=== PATIENT | male | born 1975 | race Caucasian/White ===

== ENCOUNTER 2018-05-22 21:02 | Emergency (ER) | payer OTHER ==
[~2018-05-22] VITALS: Ht 188 cm; Wt 90.7 kg
[~2018-05-22 21:02] MED LIST: IBUPROFEN800 M1 PO; PERCOCET 5-3251 EACH ORAL; ROBAXIN-750750 MG PO
[2018-05-22 21:39] VITALS: BP 130/70
[2018-05-22 21:40] VITALS: BP 130/70
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
--- NOTE | 2018-05-23 09:36 | Diagnostic Imaging Report ---
Indication: Shoulder pain Technique: 3 views of the right shoulder Comparison: none Findings: There is an old healed fracture deformity of the right clavicle. No acute fractures. No dislocations. The joint spaces are preserved Impression: No acute process
== END 2018-05-22 22:20 | disposition home or self-care (01) ==
LOC: EMR 21:45
DX: S43.401A Unspecified sprain of right shoulder joint, initial encounter (principal); W22.09XA Striking against other stationary object, initial encounter; Y92.9 Unspecified place or not applicable; Y99.0 Civilian activity done for income or pay
CPT/HCPCS: 99283

== ENCOUNTER 2018-09-01 22:50 | Emergency (ER) | payer OTHER ==
[~2018-09-01] VITALS: Ht 190.5 cm; Wt 95.3 kg
[2018-09-01] MEDS ORDERED: CITALOPRAM HBR40 M1 ORAL (22:57)
[2018-09-01 22:59] VITALS: BP 137/98
[2018-09-01] MEDS ORDERED: Tetanus/Diptheria/Pertussis Vaccine 0.5ml Syr IM ONE (23:15)
[2018-09-01] MEDS ORDERED: Bacitracin Oint UD TOPIC ONE (23:15)
--- NOTE | 2018-09-01 23:23 | Emergency Room Report ---
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 Small breaks in the skin. Dog UTD on vaccinations. Pain rated 1/10. No significant bleeding. No numbness. Denies diabetes. Unknown last tetanus. Allergies: Coded Allergies: No Known Allergies (Unverified , 07/22/13) Patient History Past Medical History: see triage record, other - IBS Social History Narrative [employer] Reviewed Nursing Documentation: PMH: Agreed; PSxH: Agreed Nursing Documentation-PMH Hx Gastrointestinal Problems: Yes - pud, ulcer, gastritis, ibs Review of Systems Constitutional: Denies: fever Musculoskeletal: Reports: see HPI Skin: Reports: see HPI Neurological: Reports: see HPI Hematologic/Lymphatic: Reports: see HPI Physical Exam Vital Signs Date Time Temp Pulse Resp B/P (MAP) Pulse Ox O2 Delivery O2 Flow Rate FiO2 09/01/18 22:53 98.4 77 16 137/98 96 Room Air Sp02 EP Interpretation: reviewed, normal General Appearance: well appearing, no apparent distress Head: normocephalic, atraumatic Eyes: bilateral eye normal inspection, bilateral eye PERRL ENT: hearing grossly normal, normal voice, moist mucus membranes Neck: full range of motion, supple Respiratory: no respiratory distress, speaking full sentences Cardiovascular #1: regular rate, rhythm Cardiovascular #2: 2+ dorsalis pedis (L) - good cap fill Gastrointestinal: normal inspection Musculoskeletal: digits/nails normal, gait/station normal, normal range of motion Neurologic: alert, oriented x3, normal gait, grossly normal Psychiatric: mood/affect normal Skin: other - abrasion/PW L lower calf Medical Decision Making Diagnostic Impression: Primary Impression: Dog bite Qualified Codes: W54.0XXA - Bitten by dog, initial encounter ER Course Patient with dog bite to L lower leg. Tetanus indicated as well as local care. Based on assessment of injuries, no systemic antibiotics indicated. Patient declines pain medication. Patient stable for outpatient observation and treatment. Last Vital Signs Date Time Temp Pulse Resp B/P (MAP) Pulse Ox O2 Delivery O2 Flow Rate FiO2 09/01/18 23:43 98.6 87 16 125/79 100 Room Air Status: improved Disposition: HOME, SELF-CARE Condition: Improved Scripts Bacitracin (Bacitracin) 28.4 Gm Oint...g. 1 APPLIC TOPIC BID, #10 GM Prov: Speedy Sanchez MD 09/01/18 Speedy Sanchez MD Sep 01, 2018 23:23
[2018-09-01] MEDS ORDERED: BACITRACIN15 GM TOPIC (23:25)
[2018-09-01 23:43] VITALS: BP 125/79
== END 2018-09-01 23:40 | disposition home or self-care (01) ==
LOC: EMR 23:21
DX: S80.812A Abrasion, left lower leg, initial encounter (principal); W54.0XXA Bitten by dog, initial encounter; Y92.9 Unspecified place or not applicable; Z23 Encounter for immunization
CPT/HCPCS: 90471; 90715; 99282

== ENCOUNTER 2020-04-14 01:42 | Emergency (ER) | payer OTHER ==
[~2020-04-14] VITALS: Ht 190.5 cm; Wt 99.8 kg
[~2020-04-14 01:42] MED LIST changes: +BACITRACIN15 GM TOPIC; +CITALOPRAM HBR40 M1 ORAL
[2020-04-14 01:50] VITALS: BP 139/99
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
--- NOTE | 2020-04-14 02:40 | NUR ---
ED Nurse Note: Devonte bandaged applied to pt arm by RN.
[2020-04-14] MEDS ORDERED: Acetaminophen 500mg (ES) tab ORAL ONE ×2 (02:44→02:45)
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
[2020-04-14] MEDS ORDERED: ACETAMINOPHEN500 M3 ORAL (02:51)
[2020-04-14 02:55] VITALS: BP 130/95
--- NOTE | 2020-04-14 02:55 | NUR ---
ER DISCHARGE NOTE: Patient is cleared to be discharged per ERMD, pt is aox4, on room air, with stable vital signs. pt was given dc and prescription instructions, pt was able to verbalize understanding, pt id band removed. pt is able to ambulate with steady gait. pt took all belongings.
--- NOTE | 2020-04-14 14:33 | Diagnostic Imaging Report ---
Indication: Elbow pain status post injury Technique: XRAY Elbow Min 3v R Comparison: None Findings: Bone mineralization within normal limits. No definite/displaced acute fractures identified. Alignment is maintained, without evidence of dislocation. No elbow joint effusion or elevation of the fat pads. No radiopaque foreign body. Impression: No radiographically appreciable acute fracture. No elbow joint effusion.
== END 2020-04-14 02:55 | disposition home or self-care (01) ==
LOC: EMR 02:03
DX: S54.01XA Injury of ulnar nerve at forearm level, right arm, initial encounter (principal); X58.XXXA Exposure to other specified factors, initial encounter; Y93.72 Activity, wrestling; Z87.11 Personal history of peptic ulcer disease
CPT/HCPCS: 99283

== ENCOUNTER → 2020-12-06 | Emergency (ER) | payer OTHER ==
[~2020-12-06] VITALS: Ht 190.5 cm; Wt 99.8 kg
[~2020-12-06] MED LIST changes: +ACETAMINOPHEN500 M3 ORAL
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
[2020-12-06 21:16] VITALS: BP 155/91
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
--- NOTE | 2020-12-06 21:35 | NUR ---
ED Nurse Note: splint applied to left hand
--- NOTE | 2020-12-07 16:16 | Diagnostic Imaging Report ---
Indication: Left hand pain Technique: 3 views left hand Comparison: none Findings: Knee no acute fracture. No dislocation. There is marked degenerative narrowing of the second through fifth proximal and distal interphalangeal joints. Impression: Degenerative changes No acute bony trauma
== END | disposition home or self-care (01) ==
LOC: EMR 21:40
DX: S69.92XA Unspecified injury of left wrist, hand and finger(s), initial encounter (principal); Y93.72 Activity, wrestling; Y92.9 Unspecified place or not applicable; Z87.11 Personal history of peptic ulcer disease
CPT/HCPCS: 99283